=== PATIENT | male | born 1990 | race American Indian/Alaskan Native ===

== ENCOUNTER 2025-02-24 13:41 | Emergency (ER) | payer MEDICAID, SELFPAY ==
[2025-02-24 13:42] VITALS: BMI 40.4
[2025-02-24 14:21] VITALS: BP 152/99; PULSE 79; RESP 20; TEMP 36.7; O2SAT 95
--- NOTE | 2025-02-24 14:21 | XR_ITS ---
Examination: Cervical spine 3 views TECHNIQUE: AP lateral coned AP odontoid cervical spine 3 views Standing time: February 24, 2025 1524 hours INDICATIONS: Patient fell at work 3 weeks ago with injury to the neck, neck pain FINDINGS: Adequate alignment cervical vertebral bodies No cervical fracture Intact odontoid IMPRESSION: No cervical fracture
--- NOTE | 2025-02-24 14:21 | XR_ITS ---
Examination: Lumbar spine 3 views TECHNIQUE: AP lateral, lateral lower lumbar spine 3 views Exam date and time: February 24, 2025 1530 hours INDICATIONS: Patient fell at work 3 weeks ago with injury to the lower back, lower back pain. FINDINGS: Satisfactory alignment lumbar vertebral bodies No lumbar fracture Moderate disc narrowing posteriorly L4-L5 IMPRESSION: No lumbar fracture
--- NOTE | 2025-02-24 14:22 | EDNOTE_ITS ---
<Statement entered by Teressa Sim MD - 02/24/25 17:43> As co-signing physician, I was present and available for consult prn. I concur with the plan and care as documented by the midlevel provider. 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 Patient sustained a fall about 24 days ago went to see his Worker's Comp. and was given medications. Pain persist now complaining of pain to the lumbar spine cervical spine and right posterior rib cage. Described as dull ache severity moderate patient is ambulatory denies any urinary incontinence denies any bowel incontinence denies any saddle anesthesia. Related Data Home Medications ?Medication ?Instructions ?Recorded ?Confirmed multivitamin 1 tab PO QDAY 06/21/1806/21 Previous Rx's ?Medication ?Instructions ?Recorded colchicine 0.6 mg tablet See Rx Instructions .Route 0 05/19/22 .COMPLEX #3 tabs naproxen 500 mg tablet (Naprosyn) 500 mg PO BID #30 ta bs 05/19/22 colchicine 0.6 mg capsule 0.6 mg PO QDAY #3 caps 07/24 cyclobenzaprine 10 mg tablet 10 mg PO BID #14 tabs hydrocodone 5 mg-acetaminophen 325 1 tab PO Q6H PRN pa in #15 tabs 02/16/23 mg tablet ibuprofen 800 mg tablet 800 mg PO Q6H PRN pain #14 t abs 02/16/23 ibuprofen 800 mg tablet 800 mg PO TID PRN pain #30 t abs 02/24/25 Allergies Allergy/AdvReac Type Severity Reaction Status Date / Time No Known Allergies Allergy Verified 02/24/25 13:44 Review of Systems Review of Systems Narrative Review of Systems: Review of system reviewed and within normal limits except mentioned in HPI ED Exam Narrative Physical exam: VITAL SIGNS: Reviewed. GENERAL APPEARANCE: Alert and interactive, follows commands, no acute distress, HEAD AND FACE: Non-traumatic. ENT: PERRL, pink conjunctivitis, eyelid no trauma, Mucous membrane moist. NECK: Supple, posterior neck tenderness, no nuchal rigidity. CHEST: Right posterior rib cage tenderness, no crepitus, no paradoxical movement, no retractions. LUNGS: Clear, well ventilated, symmetric, no rales, no wheezing, no ronchi, no stridor, good breath sounds bilaterally. HEART: Regular rate, regular rhythm, no murmur, no gallops. ABDOMEN: Soft, positive bowel sounds, nondistended, no guarding, nontender, no rebound, no masses, RECTAL: Deferred. GENITAL: Deferred. NEUROLOGICAL: Gross motor function intact sensory function intact, Appropriate for age. MUSCULOSKELETAL: low back tenderness, no midline tenderness, full range of motion. EXTREMITIES: Nontender, full range of motion. SKIN: Color pink, dry, no rash, no lacerations, no abrasions, no contusions. LYMPHATICS: Deferred. Course Quality Measures none Orders Category Date Time Status XR cervical spine 2-3V Stat Exams 02/24/25 14:21 Completed XR lumbar spine 2-3V Stat Exams 02/24/25 14:21 Completed XR ribs LT min 3V w CXR1V Stat Exams 02/24/25 15:03 Completed XR ribs RT min 3V w CXR1V Stat Exams 02/24/25 14:21 Ordered Ketorolac Inj [Toradol Inj] Med 02/24/25 14:21 Discontinued 30 mg IM X1 ONE Vital Signs Vital signs: Vital Signs Temperature 98.1 F 02/24/25 14:21 Pulse Rate 79 02/24/25 14:21 Respiratory Rate 20 02/24/25 14:21 Blood Pressure 152/99 H 02/24/25 14:21 Pulse Oximetry (%) 95 02/24/25 14:21 Oxygen Delivery Method Room Air 02/24/25 14:21 Back Pain / Injury MDM Narrative MDM Narrative:: 34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 Patient sustained a fall about 24 days ago went to see his Worker's Comp. and was given medications. Pain persist now complaining of pain to the lumbar spine cervical spine and right posterior rib cage. Described as dull ache severity moderate patient is ambulatory denies any urinary incontinence denies any bowel incontinence denies any saddle anesthesia. X-ray of the lumbar spine came back unremarkable x-ray of the cervical spine came back unremarkable. Patient x-ray of the left ribs showed nondisplaced fracture of rib #5,6,7 and 8 no pneumothorax or hemothorax noted. Patient was given a copy of his x-ray. Patient was advised to follow-up closely with Antolin Monteiro MD in the morning. Patient data External records reviewed:: None Clinical information provided by:: patient Social determinants that could affect healthcare access:: none Patient has the following chronic illnesses:: None How is presenting disease/condition affected by chronic disease/condition?: no chronic disease Evaluation data The following diagnostics were reviewed and interpreted by me:: radiology exam(s) Lab and/or radiology exams considered but not ordered:: None Interpretation Summary: See results in MDM Medications / Prescriptions Medications or Prescriptions considered but not ordered:: None Medication administrations:: Medication Administration History Discontinued Medications Ketorolac Tromethamine (Ketorolac Inj 60 Mg/2 Ml Vial) 30 mg IM X1 ONE Stop: 02/24/25 14:22 Last Admin: 02/24/25 14:29 Dose: 30 mg Documented By: YAMILETH Toradol IM Consultations Consultation(s) initiated? (list below): No Diagnosis Differential diagnosis back pain/injury: other (Rib fracture, neck pain, low back pain status post fall) Most likely diagnosis given after review of the tests above:: Neck pain, low back pain, multiple rib fracture on the left status post fall 24 days ago Admission Indicated Admission indicated?: not indicated Admission Request Was there a request for admission?: No Disposition Plan Disposition Plan: Discharge Discharge Attestation Discharge Attestation: The patient was given an opportunity to ask questions and understood the discharge instructions. Discharge instructions specifically effects, indications for sooner follow up or return to the emergency department, and the expected course of current diagnosis. Patient condition: Stable Discharge Plan Plan Patient Disposition: HOME (Self Care) Disposition Comment: Stable Prescriptions/Referrals Prescriptions/Med Rec: New ibuprofen 800 mg tablet 800 mg PO TID PRN (Reason: pain) Qty: 30 0RF No Action colchicine 0.6 mg tablet See Rx Instructions .ROUTE .COMPLEX Qty: 3 0RF Rx Instructions: 1.2 mg PO x1, then 0.6 mg PO 1H later naproxen [Naprosyn] 500 mg tablet 500 mg PO BID Qty: 30 0RF multivitamin Tablet 1 tab PO QDAY colchicine 0.6 mg capsule 0.6 mg PO QDAY Qty: 3 0RF Rx Instructions: 1.2 mg PO x 1, followed by .6 mg 1 hr later. ibuprofen 800 mg tablet 800 mg PO Q6H PRN (Reason: pain) Qty: 14 0RF cyclobenzaprine 10 mg tablet 10 mg PO BID Qty: 14 0RF hydrocodone-acetaminophen 5-325 mg tablet 1 tab PO Q6H MDD 3 PRN (Reason: pain) Qty: 15 0RF Referrals: No Primary/Family,Physician [Primary Care Provider] - In 1 week Problem List Clinical Impression: Multiple fractures of ribs of left side, Neck pain, Low back pain Patient/Caregiver Discharge Instructions Discharge Activity: activity as tolerated Education Materials: ED Rib Fracture Additional Instructions: Thank you for the opportunity for serving you today. You are stable for discharged . You are advised to: Follow-up with your Worker's Comp. in the morning Return to ED for worsening of symptoms Increase oral fluids Take medication as prescribed Print Language: Swedish Stand Alone Forms: Priya Award Info., Work/School Release, Patient Portal Info Letter SHILPA/LEONARDO Supervising Physician SHILPA/LEONARDO Supervising Physician: MD Pk
[2025-02-24] MEDS: KETOROLAC INJ 60 MG/2 ML VIAL 30 MG IM (14:29)
--- NOTE | 2025-02-24 15:03 | XR_ITS ---
Examination: Ribs, left, with PA chest, 5 views Technique: Chest PA, RIBS AP, RPO, LPO, AP coned lower ribs 5 views Exam date and time: February 24, 2025 1509 hours INDICATIONS: Patient fell 3 weeks ago with injury to the left chest, left rib pain Findings: Normal heart size No pneumothorax Fractures posterior left fifth, sixth, seventh and eighth ribs posteriorly which may be acute, nondisplaced, clinical correlation is advised IMPRESSION: No pneumothorax or pulmonary contusion Nondisplaced fractures posterior left fifth, sixth, seventh, eighth ribs which may be acute, clinical correlation is advised
[2025-02-24 15:45] VITALS: BP 149/92; PULSE 74; RESP 16; TEMP 36.9; O2SAT 96
== END 2025-02-24 16:41 | disposition home or self-care (01) ==
PROVIDERS: Emergency Provider Emergency Medicine
DX: S22.42XA Multiple fractures of ribs, left side, initial encounter for closed fracture (principal); S39.92XA Unspecified injury of lower back, initial encounter; S19.9XXA Unspecified injury of neck, initial encounter; W19.XXXA Unspecified fall, initial encounter; Y99.0 Civilian activity done for income or pay
CPT/HCPCS: 71101; 72040; 72100; 96372; 99283; J1885

== ENCOUNTER 2025-05-19 06:13 | Emergency (ER) | payer MEDICAID, SELFPAY ==
[2025-05-19 06:15] VITALS: BP 136/94; PULSE 62; RESP 18; TEMP 36.8; O2SAT 97; BMI 40.4
--- NOTE | 2025-05-19 06:40 | XR_ITS ---
Examination: CT cervical spine without contrast 2-D sagittal reconstructions 2-D coronal reconstructions 3-D reconstructions. Exam date and time:May 19, 2025 0652 hours INDICATIONS: Injury to the neck one month ago with persistent neck pain CTDI:vol (mGy) 18.5. DLP: (mGycm) 471. Technique: Multiple 2 mm axial sections of the cervical spine have been obtained. The coronal and sagittal reconstructions have been obtained. 3-D reconstructions have been obtained. Low dose protocols were performed. One or more of the following dose reduction techniques were used; automated exposure control, adjustment of the mA and/or KV according to patient size, use of iterative reconstruction technique. Findings: Axial sections demonstrate intact base of the skull. C1 exhibit satisfactory relationship to the odontoid. No acute cervical vertebral body fracture seen. Alignment posterior spinous processes satisfactory. Impression: No acute cervical fracture.
--- NOTE | 2025-05-19 06:40 | XR_ITS ---
Examination: CT brain head without contrast. 2-D sagittal coronal reconstructions Date and time of exam:May 19, 2025 0650 hours INDICATIONS: Headaches beginning one month ago CTDI: vol (mGy):5627 DLP: (mGycm):1154 Technique: Multiple CT axial sections of the brain have been obtained, 5 mm slice thickness. Contrast has not been administered. 2-D sagittal, coronal reconstructions have been obtained Low dose protocols were performed. One or more of the following dose reduction techniques were used; automated exposure control, adjustment of the mA and/or KV according to patient size, use of iterative reconstruction technique. Findings: No significant ventricular enlargement. Intra-axial or extra-axial hemorrhage density is not seen. No mass effect or midline shift Basal cisterns are not remarkable. Fourth ventricle is midline. Cranial vault intact. Impression: Negative for acute hemorrhage, mass effect or midline shift Advise clinical correlation and follow up accordingly
--- NOTE | 2025-05-19 06:44 | PD.EDHA ---
ED Headache RME/HPI General Chief Complaint: Headache Stated Complaint: HEADACHE Time Seen by Provider: 05/19/25 06:40 Source: patient Arrival date/time: 05/19/25 06:13 This is a 34-year-old male who presents to the emergency department with ongoing headache for the past several months. He describes the pain as starting at the posterior aspect of the head and radiating into the neck. The patient reports the onset of symptoms began following a work-related injury sustained a few months ago. He is currently being followed by a Worker's Compensation physician for this issue. He denies associated symptoms such as dizziness, blurry vision, nausea, vomiting, focal neurological deficits, or changes in gait. No recent head trauma reported. Mode of arrival: ambulatory Limitations: no limitations Related Data Home Medications ?Medication ?Instructions ?Recorded ?Confirmed multivitamin 1 tab PO QDAY 06/21/18 06/21/18 Previous Rx's ?Medication ?Instructions ?Recorded colchicine 0.6 mg tablet See Rx Instructions .Route 05/19/22 .COMPLEX #3 tabs naproxen 500 mg tablet (Naprosyn) 500 mg PO BID #30 tabs 05/19/22 colchicine 0.6 mg capsule 0.6 mg PO QDAY #3 caps 07/24/22 cyclobenzaprine 10 mg tablet 10 mg PO BID #14 tabs 02/16/23 hydrocodone 5 mg-acetaminophen 325 1 tab PO Q6H PRN pain #15 tabs 02/16/23 mg tablet ibuprofen 800 mg tablet 800 mg PO Q6H PRN pain #14 tabs 02/16/23 ibuprofen 800 mg tablet 800 mg PO TID PRN pain #30 tabs 02/24/25 rimegepant 75 mg disintegrating 75 mg PO Q OTHER DAY PRN migraine 05/19/25 tablet (Nurtec ODT) headache #16 tabs Allergies Allergy/AdvReac Type Severity Reaction Status Date / Time No Known Allergies Allergy Verified 05/19/25 06:18 Review of Systems Review of Systems Systems Reviewed: All systems reviewed, normal except as documented Narrative Review of Systems: Gen: No fever, no chills, no weight loss, +headache EYES: No discharge, no visual changes, no pain HEENT: No ear pain, no congestion, no sore throat PULM: No shortness of breath, no cough, no congestion CV: No chest pain, no dyspnea on exertion, no palpitations GI: No nausea, no vomiting, no diarrhea, no pain, no constipation : No frequency, no urgency,? no dysuria Musc/skel: No joint pain, no back pain Skin: No rash? ramiro ED Exam General Limitations: Present no limitations General appearance: Present alert and in no apparent distress Head Head exam: Present atraumatic Eye Eye exam: Present normal appearance, PERRL and EOMI ENT ENT exam: Present normal exam, normal oropharynx and mucous membranes moist Neck Neck exam: Present normal inspection, full ROM and trachea midline Chest Chest inspection: Present normal inspection and symmetric chest wall rise Respiratory Respiratory exam: Present normal lung sounds bilaterally Cardiovascular Cardiovascular exam: Present regular rate, normal rhythm and normal heart sounds Abdominal Exam Abdominal exam: Present soft and normal bowel sounds Extremities Exam Extremities exam: Present normal inspection and full ROM Back Exam Back exam: Present normal inspection and full ROM Neurological Exam Neurological exam: Present alert, oriented X3 and CN II-XII intact Psychiatric Psychiatric exam: Present normal affect and normal mood Skin Skin exam: Present warm, dry, intact and normal color Course Quality Measures none Orders Category Date Time Status CT cervical spine wo con Stat Exams 05/19/25 06:[address] head/brain wo con Stat Exams 05/19/25 06:40 Completed Vital Signs Vital signs: Vital Signs Temperature 98.2 F 05/19/25 06:15 Pulse Rate 62 05/19/25 06:15 Respiratory Rate 18 05/19/25 06:15 Blood Pressure 136/94 H 05/19/25 06:15 Pulse Oximetry (%) 97 05/19/25 06:15 Oxygen Delivery Method Room Air 05/19/25 06:15 Headache MDM Narrative MDM Narrative:: Likely post-traumatic tension-type headache vs. cervicogenic headache given location, chronicity, and history of work-related neck/head injury. No red flag features no neurological deficits, vision changes, altered mental status on presentation. Discharged home in stable condition - [facility] sent to pharmacy. Reinforce follow-up with Worker?s Comp provider as he is already under ongoing care Patient data External records reviewed:: [facility] previous records Clinical information provided by:: patient Social determinants that could affect healthcare access:: none Patient has the following chronic illnesses:: none How is presenting disease/condition affected by chronic disease/condition?: no chronic disease Evaluation data The following diagnostics were reviewed and interpreted by me:: radiology exam(s) Lab and/or radiology exams considered but not ordered:: no Interpretation Summary: Examination: CT brain head without contrast. 2-D sagittal coronal reconstructions Date and time of exam:May 19, 2025 0650 hours INDICATIONS: Headaches beginning one month ago CTDI: vol (mGy):5627 DLP: (mGycm):1154 Technique: Multiple CT axial sections of the brain have been obtained, 5 mm slice thickness. Contrast has not been administered. 2-D sagittal, coronal reconstructions have been obtained Low dose protocols were performed. One or more of the following dose reduction techniques were used; automated exposure control, adjustment of the mA and/or KV according to patient size, use of iterative reconstruction technique. Findings: No significant ventricular enlargement. Intra-axial or extra-axial hemorrhage density is not seen. No mass effect or midline shift Basal cisterns are not remarkable. Fourth ventricle is midline. Cranial vault intact. Impression: Negative for acute hemorrhage, mass effect or midline shift Advise clinical correlation and follow up accordingly Examination: CT cervical spine without contrast 2-D sagittal reconstructions 2-D coronal reconstructions 3-D reconstructions. Exam date and time:May 19, 2025 0652 hours INDICATIONS: Injury to the neck one month ago with persistent neck pain CTDI:vol (mGy) 18.5. DLP: (mGycm) 471. Technique: Multiple 2 mm axial sections of the cervical spine have been obtained. The coronal and sagittal reconstructions have been obtained. 3-D reconstructions have been obtained. Low dose protocols were performed. One or more of the following dose reduction techniques were used; automated exposure control, adjustment of the mA and/or KV according to patient size, use of iterative reconstruction technique. Findings: Axial sections demonstrate intact base of the skull. C1 exhibit satisfactory relationship to the odontoid. No acute cervical vertebral body fracture seen. Alignment posterior spinous processes satisfactory. Impression: No acute cervical fracture. Medications / Prescriptions Medications or Prescriptions considered but not ordered:: no Medication administrations:: n.a Consultations Consultation(s) initiated? (list below): No Diagnosis Differential diagnosis headache: migraine, tension headache, headache, sinusitis and postconcussion syndrome Most likely diagnosis given after review of the tests above:: tension headache Admission Indicated Admission indicated?: not indicated Admission Request Was there a request for admission?: No Disposition Plan Disposition Plan: Discharge Discharge Attestation Discharge Attestation: The patient and all family members were given an opportunity to ask questions and understood the discharge instructions. Discharge instructions specifically effects, indications for sooner follow up or return to the emergency department, and the expected course of current diagnosis. Patient condition: Stable Discharge Plan Plan Patient Disposition: HOME (Self Care) Patient condition on transfer: Stable Prescriptions/Referrals Prescriptions/Med Rec: New Nurtec ODT 75 mg tablet,disintegrating 75 mg PO Q OTHER DAY PRN (Reason: migraine headache) Qty: 16 0RF No Action colchicine 0.6 mg tablet See Rx Instructions .ROUTE .COMPLEX Qty: 3 0RF Rx Instructions: 1.2 mg PO x1, then 0.6 mg PO 1H later naproxen [Naprosyn] 500 mg tablet 500 mg PO BID Qty: 30 0RF multivitamin Tablet 1 tab PO QDAY ibuprofen 800 mg tablet 800 mg PO TID PRN (Reason: pain) Qty: 30 0RF colchicine 0.6 mg capsule 0.6 mg PO QDAY Qty: 3 0RF Rx Instructions: 1.2 mg PO x 1, followed by .6 mg 1 hr later. ibuprofen 800 mg tablet 800 mg PO Q6H PRN (Reason: pain) Qty: 14 0RF cyclobenzaprine 10 mg tablet 10 mg PO BID Qty: 14 0RF hydrocodone-acetaminophen 5-325 mg tablet 1 tab PO Q6H MDD 3 PRN (Reason: pain) Qty: 15 0RF Referrals: Leonardo Ewing PA-C [Primary Care Provider] - In 1 week Problem List Clinical Impression: Headache Patient/Caregiver Discharge Instructions Discharge Activity: activity as tolerated Education Materials: Self-Care for Headaches Additional Instructions: Please follow-up with your primary doctor or Worker's Comp. doctor. Your CT imaging neck are negative for any acute abnormality today. You might benefit from migraine medication Please make an appointment with your primary doctor on Wednesday for follow-up care. Return to the emergency department if any worsening symptoms change in condition. Print Language: Uruguayan Stand Alone Forms: Priya Award Info., Patient Portal Info Letter SHILPA/LEONARDO Supervising Physician SHILPA/LEONARDO Supervising Physician: Dr schilling
[2025-05-19 08:22] VITALS: BP 147/92; PULSE 78; RESP 19; TEMP 37.7; O2SAT 96
== END 2025-05-19 09:01 | disposition home or self-care (01) ==
PROVIDERS: Emergency Provider Family Medicine; PCP Physician Assistant
DX: R51.9 Headache, unspecified (principal); S19.9XXA Unspecified injury of neck, initial encounter; X58.XXXA Exposure to other specified factors, initial encounter
CPT/HCPCS: 70450; 72125; 99284